=== PATIENT | male | born 1965 | race Caucasian/White ===

== ENCOUNTER 2018-06-06 00:09 | Inpatient (IN) | payer OTHER ==
[~2018-06-06] VITALS: Ht 175.3 cm; Wt 79.4 kg
[~2018-06-06 00:09] MED LIST: ASPIRIN EC325 MG PO; CARAFATE 1 GM TA1 G1 PO; HYDROCHLOROTHIA25 M2 PO; HYDROCODONE-AP1 EAC6 PO; LIORESAL 10 MG10 MG PO; LISINOPRIL20 MG PO; METHADONE HCL5 MG PO; MORPHINE IR; MORPHINE SULFAT15 M3 PO; MS CONTIN 30 MG30 M1 PO; MS CONTIN30 MG PO; MS IR PO; NEURONTIN 300300 M1 PO; NORCO 10-325 T1 EACH PO; OMEPRAZOLE40 MG PO; PERCOCET PO; RANITIDINE 150150 M1 PO; ROBAXIN 750 MG750 M1 PO; SENOKOT-S1 TA1 PO; TOPROL XL25 MG PO; XARELTO15 MG PO; XARELTO20 MG PO; ZANAFLEX4 MG PO
[2018-06-06 00:14] VITALS: BP 138/83
[2018-06-06 00:49] LABS: ABSOLUTE EOSINOPHILS 0.2 thou/uL (0.0-0.7); ABSOLUTE LYMPHOCYTES 2.2 thou/uL (0.8-5.3); ABSOLUTE MONOCYTES 0.8 thou/uL (0.0-1.2); ABSOLUTE NEUTROPHILS 6.8 thou/uL (1.6-8.1); BASOPHILS 0.5 %; EOSINOPHILS 2.1 %; HEMATOCRIT 37.5 % (42.0-52.0); HEMOGLOBIN 12.9 gm/dL (14.0-18.0); LYMPHOCYTES 21.6 %; MCH 35.3 pg (26.0-34.0); MCHC 34.3 g/dL (28.0-37.0); MPV 7.9 fl. (7.2-11.1); NUCLEATED RBCS 0 /100WBC; PLATELET COUNT* 215 thou/uL (150-400); POLYS 67.8 %; RBC 3.64 mil/uL (4.50-6.00)
[2018-06-06 01:01] LABS: CALCIUM 8.7 mg/dL (8.5-10.1); CREATININE 0.7 mg/dL (0.6-1.3); POTASSIUM 3.7 mmol/L (3.5-5.1)
[2018-06-06 01:06] LABS: ALBUMIN 3.5 g/dL (3.4-5.0); TOTAL BILIRUBIN 0.5 mg/dL (<0.1-1.0); TOTAL PROTEIN 6.3 g/dL (6.4-8.2)
[2018-06-06 04:05] LABS: APTT 24.5 Seconds (25.0-31.3); PROTIME 10.1 Seconds (9.20-11.50)
[2018-06-06 05:00] VITALS: BP 150/78
[2018-06-06 05:15] VITALS: BP 146/73
[2018-06-06 08:18] VITALS: BP 136/72
--- NOTE | 2018-06-06 08:28 | NUR ---
Admit at 0505. He is alert and oriented x 4. He had ACL repair on L knee on 06/04/18 and had increased pain and swelling. 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 Vitals are stable. Skin looks intact. Good pedal pulses and good cap refill. Pain med given x 1. He is awake and managing pain.
[2018-06-06 16:54] VITALS: BP 112/69
--- NOTE | 2018-06-06 17:08 | NUR ---
PATIENT REMAINS ALERT AND ORIENTED. PAIN BETTER CONTROLLED WITH ADDITION OF OXYIR. PATIENT REMAINS ON BEDREST. HEPARIN GTT INFUSING. VSS. TOLERATING MEALS. WOOD WRAP TO LEFT KNEE C/D/I. VOIDING PER URINAL. CALL LIGHT WITHIN REACH. WILL CONTINUE TO MONITOR.
--- NOTE | 2018-06-06 18:03 | NUR ---
APTT 24.3. 4.7ML BOLUS AND RATE INCREASED TO 15ML/HR. REPEAT APTT 2350. BOLUS DOSE CHECKED WITH PHARMACIST, AND CORIE TERRY.
[2018-06-06 20:00] VITALS: BP 138/82
[2018-06-07] VITALS: BP 98/57
[2018-06-07 03:59] VITALS: BP 130/76
[2018-06-07 04:22] LABS: HEMATOCRIT 38.5 % (42.0-52.0); HEMOGLOBIN 12.9 gm/dL (14.0-18.0); MCH 35.1 pg (26.0-34.0); MCHC 33.6 g/dL (28.0-37.0); MCV 104.3 fL (80.0-100.0); MPV 8.9 fl. (7.2-11.1); RBC 3.69 mil/uL (4.50-6.00); RDW-CV 13.1 % (10.5-14.5); WBC 8.4 thou/uL (4.0-11.0)
[2018-06-07 04:33] LABS: CALCIUM 8.5 mg/dL (8.5-10.1); CREATININE 0.7 mg/dL (0.6-1.3); MAGNESIUM 1.7 mg/dL (1.8-2.4); POTASSIUM 3.8 mmol/L (3.5-5.1)
--- NOTE | 2018-06-07 07:43 | NUR ---
Alert and oriented x 4. Vitals are stable. He has been taking pain meds for L leg pain about every 2 hours. He rates his pain at 6. He did sleep well but he did get upset when awakened for 0400 vitals. His PTT was not therapuetic and was 25.2 it was called to Dr Hoffmann and he discontinued his heparin and started him on Xarelto. This am he began to be uncooperative and wanted to get up to the bathroom to wash up. I explained I could bring him the wash basin and he could wash up in the bed but he was bedrest and wasn't supposed to get up. I did call in [facility]INTER who stayed with him and he was taken into the bathroom by wheelchair. Acewrap dressing to L leg is intact. LLe is warm,red and has edema. He has good pedal pulses. He was upset that I wouldn't let him be up in his room independently, he said he was going to leave. He is more cooperative now that he got cleaned up.
[2018-06-07 08:30] VITALS: BP 144/64
[2018-06-07] MEDS ORDERED: XARELTO15 MG PO (08:44)
[2018-06-07] MEDS ORDERED: OXYCODONE HCL5 M1 PO (09:54)
[2018-06-07 10:28] VITALS: BP 144/64
--- NOTE | 2018-06-07 10:38 | NUR ---
SW met with pt to discuss dc planning. Pt alert, oriented. SW discussed pt to be sent home with Xarelto, pt was familiar with medicine from a few years ago and his insurance did not cover the med then, his PCP provided samples. [facility], she quoted $32.76 for Xarelto 15mg bid for 21 days and then Xarelto 20 mg daily for 30 days is $47.00. Pt agreeable to copays, script to be filled and ready for pt to be able to dc home today. No other dc needs or concerns expressed. Pt has transportation home.
--- NOTE | 2018-06-07 11:48 | NUR ---
PATIENT DISCHARGED TO HOME AT THIS TIME. IV REMOVED BY PATIENT. SCRIPTS FOR XARELTO AND OXYIR GIVEN. CASE MANAGEMENT CALLED SCRIPT FOR XARELTO IN AND GOT COPAY FOR PATIENT. PATIENT HAD [facility] TRAINGING PRIOR TO DC. DISCHARGED WITH FRIEND.
== END 2018-06-07 11:50 | disposition home or self-care (01) | DRG 300 ==
LOC: M.ERS 00:09 → M.ORTHSURG 03:38 → M.TBA-ER 03:38 → M.ORTHSURG 05:13
PROVIDERS: Personal Emergency Response Attendant; ADMIT Family Medicine
DX: I82.432 Acute embolism and thrombosis of left popliteal vein (principal); E87.1 Hypo-osmolality and hyponatremia; I82.442 Acute embolism and thrombosis of left tibial vein; G89.29 Other chronic pain; M54.9 Dorsalgia, unspecified; M54.2 Cervicalgia; Z88.0 Allergy status to penicillin; Z79.899 Other long term (current) drug therapy; Z83.49 Family history of other endocrine, nutritional and metabolic diseases; Z79.82 Long term (current) use of aspirin; Z79.01 Long term (current) use of anticoagulants

== ENCOUNTER → 2018-11-08 | Outpatient (CLI) | payer OTHER ==
[~2018-11-08] MED LIST changes: +OXYCODONE HCL5 M1 PO
== END ==
LOC: M.RAD 11-04 13:00
DX: K21.9 Gastro-esophageal reflux disease without esophagitis (principal); R13.14 Dysphagia, pharyngoesophageal phase

== ENCOUNTER → 2018-11-24 | Outpatient (CLI) | payer OTHER | LOC: M.ULTRA 07:53 | DX: R11.0 Nausea (principal); R10.13 Epigastric pain ==

== ENCOUNTER → 2019-04-11 | Outpatient (CLI) | payer OTHER | LOC: M.ULTRA 07:28 | DX: I10 Essential (primary) hypertension (principal); R93.5 Abnormal findings on diagnostic imaging of other abdominal regions, including retroperitoneum ==

== ENCOUNTER 2020-06-22 09:46 | Emergency (ER) | payer OTHER ==
[~2020-06-22] VITALS: Ht 177.8 cm; Wt 86.2 kg
[2020-06-22] MEDS ORDERED: OMEPRAZOLE 20 M20 M1 PO (10:17)
[2020-06-22] MEDS ORDERED: IBUPROFEN 800800 M1 PO (12:03)
[2020-06-22 12:09] VITALS: BP 181/115
== END 2020-06-22 12:10 | disposition home or self-care (01) ==
LOC: M.ERS 09:46
DX: S93.492A Sprain of other ligament of left ankle, initial encounter (principal); M54.5 Low back pain; M79.642 Pain in left hand; R07.89 Other chest pain; I10 Essential (primary) hypertension; G89.29 Other chronic pain; Z88.0 Allergy status to penicillin; V29.9XXA Motorcycle rider (driver) (passenger) injured in unspecified traffic accident, initial encounter; Y93.89 Activity, other specified; Y92.89 Other specified places as the place of occurrence of the external cause; Y99.8 Other external cause status

== ENCOUNTER 2020-08-19 17:21 | Emergency (ER) | payer OTHER ==
[~2020-08-19] VITALS: Ht 175.3 cm; Wt 86.2 kg
[~2020-08-19 17:21] MED LIST changes: +IBUPROFEN 800800 M1 PO; +OMEPRAZOLE 20 M20 M1 PO
[2020-08-19 17:50] VITALS: BP 160/93
== END 2020-08-19 19:00 | disposition left against medical advice (07) ==
LOC: M.ERS 17:21
DX: M25.562 Pain in left knee (principal); M25.572 Pain in left ankle and joints of left foot; I10 Essential (primary) hypertension; G89.29 Other chronic pain; Z88.0 Allergy status to penicillin

== ENCOUNTER → 2021-05-06 | Outpatient (CLI) | payer OTHER | LOC: M.ULTRA 09:30 | PROVIDERS: ATTEND Nurse Practitioner Adult Health | DX: K76.0 Fatty (change of) liver, not elsewhere classified (principal); R10.9 Unspecified abdominal pain ==